=== PATIENT | male | born 1955 | race Caucasian/White ===

== ENCOUNTER 2021-10-19 07:33 | Day surgery (SDC) | payer MEDICARE ==
[2021-10-13 11:56] VITALS: BMI 26.6
[2021-10-19] MEDS ORDERED: Lidocaine 1% MPF 2 ML VIAL ONE (07:57)
[2021-10-19] MEDS ORDERED: PROPOFOL 40 ML ONE (09:04)
[2021-10-19] MEDS ORDERED: Lidocaine 1% PF 5 ML VIAL ONE (09:04)
== END 2021-10-19 10:02 | disposition home or self-care (01) ==
LOC: CSHSDC 07:33
PROVIDERS: ATTEND Internal Medicine Gastroenterology
PROC: 0DJD8ZZ Inspection of Lower Intestinal Tract, Via Natural or Artificial Opening Endoscopic (ICD-10-PCS; principal; 2021-10-19)
DX: Z12.11 Encounter for screening for malignant neoplasm of colon (principal); Z86.010 Personal history of colon polyps; K57.30 Diverticulosis of large intestine without perforation or abscess without bleeding; K64.9 Unspecified hemorrhoids; E03.9 Hypothyroidism, unspecified; G47.30 Sleep apnea, unspecified; Z87.891 Personal history of nicotine dependence
CPT/HCPCS: J2704